=== PATIENT | female | born 1950 | race Caucasian/White ===

== ENCOUNTER 2018-09-08 21:40 | Emergency (ER) | payer OTHER, MEDICAID ==
[~2018-09-08] VITALS: Ht 149.9 cm; Wt 60.0 kg
[~2018-09-08 21:40] MED LIST: [UNRECOGNIZED DRUG - REMARK]
[2018-09-08 21:51] VITALS: Ht 149.9 cm; Wt 60.0 kg
[2018-09-08] MEDS ORDERED: ONDANSETRON 4 MG INJ IV STA (22:01)
[2018-09-08] MEDS ORDERED: SOD CHLORIDE 0.9% 1,000 ML IV STA (22:01)
--- NOTE | 2018-09-08 22:14 | ERD ---
ER Documentation Chief Complaint Chief Complaint dizziness since sunday. HPI 68-year-old woman complains of 2 days of dizziness. She denies loss of consciousness, no fevers or chills, no chest pain or shortness of breath, no URI symptoms ROS All systems reviewed and are negative except as per history of present illness. Medications Home Meds Active Scripts Cephalexin* (Keflex*) 500 Mg Capsule, 500 MG PO TID for 7 Days, CAP Prov:JANIE CARRERA MD 09/08/18 Reported Medications [B/P Med Does Not Know Name] No Conflict Check 01/24/12 Allergies Allergies: Coded Allergies: No Known Allergy (Unverified , 01/24/12) PMhx/Soc Hypertension History of Surgery: Yes (APPENDECTOMY, HYSTERECTOMY) Anesthesia Reaction: No Hx Neurological Disorder: No Hx Respiratory Disorders: No Hx Cardiac Disorders: Yes (HTN) Hx Psychiatric Problems: No Hx Miscellaneous Medical Probl: No Hx Alcohol Use: No Hx Substance Use: No Hx Tobacco Use: No Smoking Status: Never smoker FmHx Family History: No diabetes Physical Exam Vitals Vital Signs Date Temp Pulse Resp B/P (MAP) Pulse Ox O2 O2 Flow FiO2 Time Delivery Rate 09/08/18 96.9 65 16 121/60 98 Room Air 23:51 (80) 09/08/18 96.9 70 16 130/60 98 21:51 (83) Physical Exam GENERAL: Well-developed, well-nourished, well-hydrated, in no apparent distress, looks nontoxic in appearance HEENT: Moist mucous membranes, pink conjunctiva, no cervical spine tenderness or step-off deformities, no goiter, no jaundice or icterus, extraocular movements intact without pain. No submandibular induration, and no pharyngeal erythema NEURO: Alert and oriented 3, cranial nerves II through XII intact bilaterally, pupils equal round reactive to light, no focal deficits or facial asymmetry, sensation intact distally Strength 5/5 in upper and lower extremities bilaterally CARDIAC: Regular rate and rhythm, no murmurs rubs or gallops LUNGS: Clear bilaterally no wheezing crackles or stridor ABDOMEN: Soft nontender, no guarding, no rigidity, no rebound, no psoas sign no obturator sign. Normoactive bowel sounds SKIN: Warm and dry to touch, no abrasions, contusions, or hematomas, no lacerations, no ecchymosis, no target lesions, and without ulcers EXTREMITIES: No clubbing cyanosis or edema, calves are bilaterally symmetrical, no Homans sign, no popliteal cord sign. Distal pulses equal and bilateral PSYCH: Normal affect without agitation or irritability Result Diagram: 09/08/18222709/08/182227 Results 24 hrs Laboratory Tests Test 09/08/18 22:28 09/08/18 22:41 White Blood Count 9.0 10^3/ul Red Blood Count 4.51 10^6/ul Hemoglobin 13.2 g/dl Hematocrit 41.2 % Mean Corpuscular Volume 91.4 fl Mean Corpuscular Hemoglobin 29.3 pg Mean Corpuscular Hemoglobin Concent 32.0 g/dl Red Cell Distribution Width 13.2 % Platelet Count 224 10^3/UL Mean Platelet Volume 10.7 fl Immature Granulocytes % 0.200 % Neutrophils % 74.7 % Lymphocytes % 14.4 % Monocytes % 8.9 % Eosinophils % 0.7 % Basophils % 1.1 % Nucleated Red Blood Cells % 0.0 /100WBC Immature Granulocytes # 0.020 10^3/ul Neutrophils # 6.7 10^3/ul Lymphocytes # 1.3 10^3/ul Monocytes # 0.8 10^3/ul Eosinophils # 0.1 10^3/ul Basophils # 0.1 10^3/ul Nucleated Red Blood Cells # 0.0 10^3/ul Sodium Level 139 mmol/L Potassium Level 4.2 mmol/L Chloride Level 102 mmol/L Carbon Dioxide Level 30 mmol/L Anion Gap 7 Blood Urea Nitrogen 21 mg/dl Creatinine 1.66 mg/dl Est Glomerular Filtrat Rate mL/min 31 mL/min Glucose Level 105 mg/dl Calcium Level 9.7 mg/dl Total Bilirubin 0.3 mg/dl Direct Bilirubin 0.00 mg/dl Indirect Bilirubin 0.3 mg/dl Aspartate Amino Transf (AST/SGOT) 29 IU/L Alanine Aminotransferase (ALT/SGPT) 20 IU/L Alkaline Phosphatase 73 IU/L Troponin I < 0.012 ng/ml Total Protein 7.4 g/dl Albumin 4.0 g/dl Globulin 3.40 g/dl Albumin/Globulin Ratio 1.17 Lipase 223 U/L Urine Color YELLOW Urine Clarity CLOUDY Urine pH 6.0 Urine Specific [place] 1.012 Urine Ketones NEGATIVE mg/dL Urine Nitrite NEGATIVE mg/dL Urine Bilirubin NEGATIVE mg/dL Urine Urobilinogen NEGATIVE mg/dL Urine Leukocyte Esterase 3+ Avril/ul Urine Microscopic RBC 6 /HPF Urine Microscopic WBC 99 /HPF Urine Squamous Epithelial Cells MODERATE /HPF Urine Bacteria FEW /HPF Urine Hyaline Casts FEW /HPF Urine Mucus FEW /HPF Urine Hemoglobin 1+ mg/dL Urine Glucose NEGATIVE mg/dL Urine Total Protein NEGATIVE mg/dl Current Medications Medications Dose Sig/[place] Start Time Status Last (Trade) Ordered Route PRN Stop Time Admin Dose Reason Admin Sodium 1,000 ml @ Q1H STAT 09/08/18 DC 09/08/18 Chloride 1,000 mls/hr IV 22:01 22:45 09/08/18 23:00 Ondansetron 4 mg ONCE STAT 09/08/18 DC 09/08/18 HCl (Zofran IV 22:01 22:45 Inj) 09/08/18 22:02 Ceftriaxone 50 ml @ ONCE ONCE 09/08/18 DC 09/08/18 Sodium 100 mls/hr IVPB 23:30 23:37 09/08/18 23:57 Procedures/MDM IV line was established patient was placed on environmental monitoring specialist rhythm strip revealed a sinus rhythm at about 70 bpm with upright P and T waves. Patient was afebrile EKG performed, read by me revealed a normal sinus rhythm at 70 bpm, left axis deviation, narrow QRS complex, no concerning ST elevations or depressions noted I administered 1 L normal saline IV, Zofran 4 mg IV for dizziness. CBC and electrolytes were normal, liver function tests were normal, urine analysis was positive for infection. They treated her here with ceftriaxone 1 g IV. Patient symptoms did improve while here in the ER and I suspect her dizziness is due to acute UTI, she will be treated as an outpatient. Outpatient follow-up recommendations and return precautions were provided. Differential diagnoses considered, included but not limited to acute coronary syndrome, pulmonary embolism, aortic dissection, abdominal aortic aneurysm, sepsis, stroke, meningitis, encephalitis, pneumonia, appendicitis, cholecystitis, bowel obstruction, pyelonephritis, nephrolithiasis, cystitis, as well as metabolic, hematologic, and electrolyte abnormalities. As well as abscess, cellulitis, fractures, and dislocations. Patient feels much better at this time, and vital signs are normal, symptoms have improved. I did give strict instructions to return to the ED if symptoms continue or worsen, patient will otherwise follow-up with primary care physician. Patient understood instructions and agreed to plan. Disclaimer: Inadvertent spelling and grammatical errors are likely due to EHR/dictation software use and do not reflect on the overall quality of patient care. Also, please note that the electronic time recorded on this note does not necessarily reflect the actual time of the patient encounter. Departure Diagnosis: Primary Impression: Dizziness Additional Impression: Acute UTI Condition: Good JANIE CARRERA MD Sep 08, 2018 22:14
[2018-09-08] MEDS ORDERED: CEPH-443 PO (23:19)
[2018-09-08] MEDS ORDERED: CEFTRIAXONE 1 GM/50 ML (PMX) 50 ML IVPB ONE (23:30)
[2018-09-08 23:51] VITALS: BP 121/60; PULSE 65; RESP 16
== END 2018-09-08 23:57 | disposition home or self-care (01) ==
LOC: E/R 21:40
DX: R42 Dizziness and giddiness (principal); I10 Essential (primary) hypertension; N39.0 Urinary tract infection, site not specified; R40.2142 Coma scale, eyes open, spontaneous, at arrival to emergency department; R40.2362 Coma scale, best motor response, obeys commands, at arrival to emergency department; R40.2252 Coma scale, best verbal response, oriented, at arrival to emergency department
CPT/HCPCS: 36415; 80053; 81001; 83690; 84484; 85025; 93005; 96374; 96375; 99284; J0696; J2405; J7030